=== PATIENT | female | born 1975 | race African-American/Black ===

== ENCOUNTER 2016-06-16 21:55 | Observation (INO) | payer OTHER ==
[~2016-06-16] VITALS: Ht 154.9 cm; Wt 51.7 kg
[2016-06-16] MEDS ORDERED: KETOROLAC 30 MG/ML VIAL (J1885) As Ordered ONE (22:45)
[2016-06-16] MEDS ORDERED: ONDANSETRON 4MG/2ML VIAL (J2405) As Ordered ONE (22:45)
[2016-06-16 22:50] LABS: CONTROL LINE UCG INT CTR LINE PRESENT
[2016-06-16 23:58] LABS: BASO % 0.3 % (0.0-1.0); EOS # 0.1 K/mm3 (0.0-0.50); LARGE UNSTAINED CELL # 0.6 K/mm3 (0.0-0.4); LARGE UNSTAINED CELL % 5.1 % (0.0-4.0); LYMPH # 1.9 K/mm3 (1.5-4.5); LYMPH % 12.1 % (24.0-44.0); MEAN CORPUSCULAR HEMOGLOBIN 32.9 pg (27.0-33.0); MEAN CORPUSCULAR HGB CONC 33.5 g/dl (32.0-36.5); MEAN CORPUSCULAR VOLUME 98.2 fl (80.0-96.0); MONO # 1.4 K/mm3 (0.0-0.8); MONO % 12.4 % (0.0-5.0); NEUTROPHILS # 7.6 K/mm3 (1.8-7.7); NEUTROPHILS % 69.1 % (36.0-66.0); PLATELET COUNT, AUTOMATED 347 k/mm3 (150-450); RED CELL DISTRIBUTION WIDTH 13.8 % (11.5-14.5)
[2016-06-17] MEDS ORDERED: CIPROFLOXACIN/D5W 400 MG/200 ML BAG (J0744) As Ordered ONE (00:12)
[2016-06-17 00:38] LABS: ALBUMIN 2.5 GM/DL (3.2-5.2); ALBUMIN/GLOBULIN RATIO 0.63 (1.00-1.93); ALKALINE PHOSPHATASE 83 U/L (45-117); ALT/SGPT 37 U/L (12-78); AST/SGOT 26 U/L (15-37); BILIRUBIN,DIRECT 0.5 MG/DL (0.0-0.2); BILIRUBIN,TOTAL 1.3 MG/DL (0.2-1.0); CREATININE FOR GFR 0.62 MG/DL (0.55-1.02); GLOMERULAR FILTRATION RATE > 60.0 (>58); TOTAL PROTEIN 6.5 GM/DL (6.4-8.2)
[2016-06-17 00:40] LABS: BLOOD UREA NITROGEN 3 MG/DL (7-18); GLUCOSE, FASTING 123 MG/DL (70-105); SODIUM LEVEL 141 MEQ/L (136-145)
[2016-06-17 00:41] LABS: ANION GAP 9 MEQ/L (8-16); CARBON DIOXIDE LEVEL 22 MEQ/L (21-32); CHLORIDE LEVEL 110 MEQ/L (98-107)
[2016-06-17] MEDS ORDERED: ACETAMINOPHEN 325 MG TAB As Ordered ONE (00:44)
[2016-06-17 00:49] LABS: POTASSIUM SERUM 2.9 MEQ/L (3.5-5.1)
[2016-06-17] MEDS ORDERED: AMBI10TA PO (01:00)
[2016-06-17] MEDS: NS 1,000 ML IV SCH ×3 (01:00→23:52)
[2016-06-17] MEDS ORDERED: PHEN200T14 PO (01:00)
[2016-06-17] MEDS ORDERED: TYLE500T78 PO (01:00)
[2016-06-17] MEDS ORDERED: CEFT500T3 PO (01:00)
[2016-06-17] MEDS ORDERED: PERCOCET 5MG/325MG TAB PO PRN (01:00)
[2016-06-17] MEDS ORDERED: ONDANSETRON 4MG/2ML VIAL (J2405) IV PRN (01:00)
[2016-06-17] MEDS ORDERED: IBUPROFEN 600 MG TAB PO PRN (01:00)
[2016-06-17] MEDS ORDERED: POTASSIUM CHLORIDE 10 MEQ SR TABLET As Ordered ONE ×2 (01:10→04:10)
[2016-06-17 01:12] LABS: MAGNESIUM LEVEL 1.8 MG/DL (1.8-2.4)
[2016-06-17] MEDS ORDERED: zolPIDEM TARTRATE 10MG TAB PO PRN (01:15)
--- NOTE | 2016-06-17 01:56 | HPEPDOC ---
Medical History and Physical Date of Admission Jun 17, 2016 at 00:42 History and Physical PRIMARY CARE PROVIDER: Sandrine Gross in [facility] CHIEF COMPLAINT: Back pain HISTORY OF PRESENT ILLNESS: Patient is a 41-year-old female who presented to emergency department today with chief complaint of back pain. Patient was recently seen and treated in [place] for back pain. Patient was diagnosed with a urinary tract infection and treated with a course of Ceftin and phenazopyridine. Urine culture grew ESBL Escherichia coli. She is up in [facility] visiting her sister at [place]. She presents to emergency department this evening due to pain in her back getting worse. Patient complaining of low back pain which was initially just present on her left side but is now also getting pain on the right side of her back. She currently rates her pain as 0/10 but at its worst her pain was 10/ 10. She describes pain as really uncomfortable, inability to get comfortable and she says that it hurts to breathe. She is having chills and fevers but denies sweats. She denies dysuria, hematuria. ALLERGIES: None PAST MEDICAL HISTORY: None PAST SURGICAL HISTORY: None SOCIAL HISTORY: Patient denies any tobacco product use. She drinks alcohol 1-2 times per month. She smokes marijuana 3-4 times per week. She lives in [place] with her 2 daughters. CODE STATUS: Full code REVIEW OF SYSTEMS: Constitutional: Positive for fever and chills, denies sweats HEENT: Head: Positive for dizziness and lightheadedness, denies headache. Eyes: denies blurry vision, double vision. Ears: denies hearing loss, tinnitus, ear pain. Nose: denies sinus pain, pressure, rhinorrhea, postnasal drip. Throat: denies sore throat, cough, difficulty swallowing Cardiovascular: denies chest discomfort/pain, palpitations Respiratory: denies shortness of breath, difficulty breathing Gastrointestinal: Positive for stomach pain, vomiting with brown vomitus. She denies diarrhea, constipation, hematochezia : denies dysuria, hematuria Musculoskeletal: Positive for the back pain which is worse with deep breathing Neurological: denies numbness, tingling, paresthesias Lymphatics: denies palpable lymph nodes or swollen glands Integumentary: denies any cuts, rashes, bruises Endocrine: Positive for polyuria, polydipsia PHYSICAL EXAMINATION: Vitals: Temperature 100.7, pulse 86, respiratory rate 18, blood pressure 127/86 , pulse ox 97% on room air General: Patient awake in stretcher, alert and oriented, verbal and able to answer questions appropriately. She does not appear to be in any acute distress HEENT: Head: normocephalic, atraumatic. Eyes: pupils equally reactive to light , conjunctiva are pink, sclera are nonicteric. Throat: buccal mucosa is pink and moist with no lesions in the oropharynx Respiratory: clear to auscultation bilaterally with no wheezes, rales, or rhonchi. Cardiovascular: regular rate and rhythm, with no murmurs, rubs or gallops. Abdomen: Right upper quadrant tenderness to palpation, soft, no masses to palpation Back: Left sided CVA tenderness to palpation Extremities: 5/5 strength in upper and lower extremities bilaterally, no swelling in either lower extremity bilaterally Neurological: sensation intact and symmetrical in upper and lower extremities bilaterally Lymphatics: no palpable lymph nodes, swollen glands Integumentary: skin free from rashes, lesions, abrasions Vascular: Radial pulses palpable and symmetrical LABORATORY DATA: CBC: White blood cells 11.0, H&H 9.9/29.5, platelets 347 Chemistry: Sodium 141, potassium 2.9, chloride 110, carbon dioxide 22, BUN 3, creatinine 0.62, glucose 123, calcium 8.0, magnesium 1.8 Lactic acid 1.0 Liver profile: AST 26, ALT 37, alkaline phosphatase 83, total protein 6.5, albumin 2.5, total bilirubin 1.3, direct bilirubin 0.5 UA: Color ninoska, appearance clear, pH 6.0, specific gravity 1.013, 1+ protein, 1 + ketones, 1+ blood, positive nitrites, 4.0 urobilinogen, 5 white blood cells, 18 red blood cells. Negative for all of the following: Glucose, bilirubin, leukocyte esterase, bacteria MICROBOIOLOGY: Blood cultures 2 pending ASSESSMENT: Patient is a 41-year-old female with ESBL Escherichia coli. She will be admitted for IV antibiotics, pain management and further observation. PLAN: #1: ESBL Escherichia coli: Admit patient to [facility] under care of Dr. Rivera. Orders placed for a Tylenol 650 mg by mouth every 4 hours when necessary for pain or fever, ibuprofen 600 mg by mouth every 6 hours when necessary for pain or fever, Levaquin 750 mg IV every 24 hours, Zofran 4 mg IV every 6 hours when necessary for nausea or vomiting, oxycodone with acetaminophen one tablet by mouth every 4 hours when necessary for pain, normal saline at rate of 90 mL/hr #2: Hypokalemia: Patient's potassium of 2.9, order placed for 40 meqs oral potassium every hour 2 doses. We will recheck potassium in the morning #3: Insomnia: Order placed for home dose of Ambien 10 mg by mouth daily at bedtime when necessary #4: DVT prophylaxis: Order placed for Lovenox 40 mg subcutaneously daily My preceptor for this patient encounter was physically present in the building during the encounter and was fully available. As needed, all aspects of the patient interview, examination, medical decision making process, and medical care plan development were reviewed and approved by the preceptor. Preceptor is aware and concurs with the plan as stated in the body of this note and will attest to such by his/her cosignature. Attending Note: I have independently examined this patient and all aspects of the exam and treatment decisions have been discussed with the resident. A member of the hospitalist staff will continue to follow this patient through discharge. Vital Signs Temperature 100.7, pulse 86, respiratory rate 18, blood pressure 127/86, pulse ox 97% on room air Home Medications Scheduled Cefuroxime Axetil (Ceftin) 500 Mg Tab 500 MG PO Q12H Scheduled PRN Acetaminophen (Tylenol Extra Strength) 500 Mg Tab 1,000 MG PO Q4H PRN PRN PAIN Phenazopyridine HCl (Phenazopyridine HCl) 200 Mg Tab 200 MG PO BID PRN PRN DISCOMFORT Zolpidem Tartrate (Ambien) 10 Mg Tab 10 MG PO QHS PRN PRN SLEEP Allergies Coded Allergies: No Known Allergies (Unverified , 06/17/16) JEROME DEXTER DO Jun 17, 2016 01:56 ARTUR COBOS DO Jun 17, 2016 23:07
[2016-06-17] MEDS: POTASSIUM CHLORIDE 10 MEQ SR TABLET PO SCH ×2 (02:30→03:30)
[2016-06-17] MEDS: LevoFLOXacin IV 750 MG in APPROPRIATE DILUENT 1 EA IV SCH (03:05)
[2016-06-17] MEDS ORDERED: LevoFLOXacin/DEXTROSE 750 MG/150 ML BAG (J1956) As Ordered ONE (03:07)
[2016-06-17 03:20] LABS: ANION GAP 10 MEQ/L (8-16); BLOOD UREA NITROGEN 3 MG/DL (7-18); CALCIUM LEVEL 7.6 MG/DL (8.5-10.1); CARBON DIOXIDE LEVEL 23 MEQ/L (21-32); CHLORIDE LEVEL 111 MEQ/L (98-107); CREATININE FOR GFR 0.68 MG/DL (0.55-1.02); GLOMERULAR FILTRATION RATE > 60.0 (>58); GLUCOSE, FASTING 164 MG/DL (70-105); POTASSIUM SERUM 3.1 MEQ/L (3.5-5.1); SODIUM LEVEL 144 MEQ/L (136-145)
[2016-06-17] MEDS ORDERED: PERCOCET 5MG/325MG TAB As Ordered ONE (04:18)
[2016-06-17 06:52] LABS: MEAN CORPUSCULAR HEMOGLOBIN 33.3 pg (27.0-33.0); MEAN CORPUSCULAR HGB CONC 33.7 g/dl (32.0-36.5); MEAN CORPUSCULAR VOLUME 98.9 fl (80.0-96.0); RED CELL DISTRIBUTION WIDTH 13.7 % (11.5-14.5); WHITE BLOOD COUNT 10.5 K/mm3 (4.0-10.0)
[2016-06-17 06:53] LABS: ANION GAP 9 MEQ/L (8-16); BLOOD UREA NITROGEN 2 MG/DL (7-18); CALCIUM LEVEL 7.9 MG/DL (8.5-10.1); CARBON DIOXIDE LEVEL 23 MEQ/L (21-32); CHLORIDE LEVEL 110 MEQ/L (98-107); CREATININE FOR GFR 0.68 MG/DL (0.55-1.02); GLOMERULAR FILTRATION RATE > 60.0 (>58); GLUCOSE, FASTING 116 MG/DL (70-105); POTASSIUM SERUM 3.7 MEQ/L (3.5-5.1); SODIUM LEVEL 142 MEQ/L (136-145)
[2016-06-17 08:00] VITALS: BP 116/82
[2016-06-17] MEDS ORDERED: MORPHINE 2 MG/ML 1ML SYRINGE IV PRN (08:15)
[2016-06-17 08:22] LABS: MAGNESIUM LEVEL 1.9 MG/DL (1.8-2.4)
[2016-06-17] MEDS ORDERED: ENOXAPARIN 40 MG/0.4 ML SYRINGE (J1650) As Ordered ONE (08:33)
[2016-06-17] MEDS ORDERED: MORPHINE 2 MG/ML 1ML SYRINGE As Ordered ONE (08:33)
[2016-06-17] MEDS: ENOXAPARIN 40 MG/0.4 ML SYRINGE (J1650) SC SCH (08:48)
[2016-06-17] MEDS ORDERED: ACETAMINOPHEN TAB 650MG DOSE (2X325MG) As Ordered ONE (12:17)
[2016-06-17] MEDS: ACETAMINOPHEN TAB 650MG DOSE (2X325MG) PO PRN ×2 (12:18→20:29)
[2016-06-17 13:30] VITALS: BP 127/87
[2016-06-17] MEDS: SENOKOT S TAB PO SCH ×2 (13:30→20:15)
--- NOTE | 2016-06-17 13:42 | EDDOCDS ---
Physician Documentation [facility] Name: Mary Martinez Age: 41 yrs Sex: Female : 1975 Arrival Date: 06/16/2016 Time: 21:55 Bed Admit Hold Private MD: Other - Complete Info On Cds Disposition: 06/17/16 00:12 Hospitalization ordered by Dewey Bright for Inpatient Admission. Preliminary diagnosis are Bacteremia - e.coli (esbl), Urinary tract infection, site not specified, Sepsis due to Escherichia coli [E. coli]. - Bed requested for M PED. - Status is Inpatient Admission. bcj - Condition is Stable. - Problem is new. - Symptoms are unchanged. Historical: - Allergies: no known allergies; - Home Meds: 1. Azo-Standard Oral 2. antibiotic - PMHx: none; - PSHx: none; - Social history: Smoking status: Patient states was never smoker of tobacco. No barriers to communication noted, The patient speaks fluent [place]ralt[place]. - Family history: Not pertinent. - : The pt / caregiver states he / she is not on anticoagulants. Home medication list is obtained from the patient. - Exposure Risk Screening:: None identified. DUCT MAKER: 06/16 22:02 LMP N/A - control method mcp Vital Signs: 21:57 BP 161 / 88; Pulse 102; Resp 20 S; Temp 99.3(O); Pulse Ox 100% on R/A; Weight 51.71 kg gr2 / 114 lbs (R); Height 5 ft. 1 in. (154.94 cm) (R); Pain 10/10; 06/17 00:17 BP 127 / 86; Pulse 86; Resp 18; Temp 100.7(O); Pulse Ox 97% on R/A; Pain 0/10; kb5 02:15 BP 128 / 82; Pulse 74; Resp 16; Temp 98.8(O); Pulse Ox 97% on R/A; Pain 3/10; ld5 04:30 BP 127 / 85; Pulse 95; Resp 16; Temp 99.5; Pulse Ox 98% ; Pain 5/10; ko2 06/16 21:57 Body Mass Index 21.54 (51.71 kg, 154.94 cm) gr2 MDM: 06/16 22:37 IV Saline Lock ordered. ar2 22:37 NS 0.9% 1000 ml IV at bolus once ordered. ar2 22:37 -Blood Culture (Adults Only), peripheral from different site, or from device/port/PICC ar2 etc. if present ordered. 22:37 Ondansetron 4 mg IVP once ordered. ar2 22:37 Misc Double End Tenon Operator Order ordered. ar2 22:37 ketorolac 30 mg IVP once; administer if NEG UCG ordered. ar2 22:38 CBC with Diff Ordered. EDMS 22:38 MED Profile Ordered. EDMS 22:38 UA Ordered. EDMS 22:38 -Blood Culture Ordered. EDMS 22:44 UCG- In Lab Ordered. EDMS 22:54 Misc Double End Tenon Operator Order complete. kb5 23:06 -Blood Culture (Adults Only), peripheral from different site, or from device/port/PICC kb5 etc. if present complete. 23:08 BLOOD CULTURES Ordered. EDMS 23:22 UCG- In Lab Reviewed. ar2 23:34 Lactic Acid (Kim tube on ice) Ordered. EDMS 23:50 Financial registration complete. zo 23:51 [facility] Payment Agreement was scanned into [employer] and attached to record. zo 06/17 00:00 Ciprofloxacin 400 mg IVPB at 200 mL/hr once over 60 mins ordered. ar2 00:00 NS 0.9% (Sepsis- hypotension or lactate >4mmol/L, 30ml/kg) 500 ml IV at bolus once; ar2 Give in 500mL aliquots, assess for rales after each, inform provider ordered. 00:01 CBC with Diff Reviewed. ar2 00:01 UA Reviewed. ar2 00:01 BED REQUEST+ADM ordered. EDMS 00:27 LIVER PROFILE Ordered. EDMS 00:30 Acetaminophen Tablet 650 mg PO once ordered. ar2 00:30 Lactic Acid (Kim tube on ice) Reviewed. ar2 00:43 Admission / Observation Status ordered. EDMS 00:57 MED Profile Reviewed. ar2 00:57 LIVER PROFILE Reviewed. ar2 00:58 Potassium Chloride Extended Release Tablet 40 mEq PO once ordered. ar2 01:05 REGULAR DIET ordered. EDMS 01:05 COMPLETE BLOOD COUNT Ordered. EDMS 01:05 BASIC METABOLIC PROFILE Ordered. EDMS 01:08 MAGNESIUM LEVEL Ordered. EDMS 01:48 MED Profile Reviewed. ar2 01:48 LIVER PROFILE Reviewed. ar2 01:48 MAGNESIUM LEVEL Reviewed. ar2 01:55 NS 0.9% 1000 ml IV at 90 mL/hr continuous ordered. ld5 02:42 Written Provider Order was scanned into [employer] and attached to record. ml3 02:43 BASIC METABOLIC PROFILE Ordered. EDMS 04:06 Written Provider Order was scanned into [employer] and attached to record. ml3 07:15 URINE CULTURE Ordered. EDMS Administered Medications: 06/16 23:20 Drug: NS 0.9% 1000 ml [sodium chloride 0.9 % intravenous solution] Route: IV; Rate: ld5 bolus; Site: right antecubital; 06/17 00:37 Follow up: IV Status: Completed infusion; IV Intake: 1000ml ld5 06/16 23:20 Drug: Ondansetron 4 mg [ondansetron HCl 2 mg/mL intravenous solution (2 mL)] Route: ld5 IVP; Site: right antecubital; 23:20 Drug: ketorolac 30 mg [ketorolac 30 mg/mL (1 mL) injection solution (1 mL)] Route: IVP; ld5 Site: right antecubital; 06/17 00:00 Follow up: Response: Pain is decreased ld5 00:18 Drug: Ciprofloxacin 400 mg [ciprofloxacin 400 mg/200 mL in 5 % dextrose intravenous ld5 piggyback] Route: IVPB; Rate: 200 mL/hr; Infused Over: 60 mins; Site: right forearm; 01:36 Follow up: IV Status: Completed infusion; IV Intake: 200ml ld5 00:37 Drug: NS 0.9% (Sepsis- hypotension or lactate >4mmol/L, 30ml/kg) 500 ml [sodium ld5 chloride 0.9 % intravenous solution] Route: IV; Rate: bolus; Site: right forearm; 00:47 Drug: Acetaminophen 650 mg [acetaminophen 325 mg tablet (2 tabs)] Route: PO; rw1 02:16 Follow up: Response: Temperature is decreased ld5 01:54 Drug: Potassium Chloride 40 mEq [potassium chloride ER 10 mEq tablet,extended release ld5 (4 tabs)] Route: PO; 02:05 Drug: NS 0.9% 1000 ml [sodium chloride 0.9 % intravenous solution] Route: IV; Rate: 90 ld5 mL/hr; Site: right forearm; Signatures: Dispatcher [employer] EDMS Lukas Miller RN RN Ruby Bernabe, RN RN orlin Valerie RubySmileyJordyn, [employer] ml3 Maritza Hay Kristopher, CHIEF MERCHANDISING OFFICER CHIEF MERCHANDISING OFFICER kb5 Dewey Cottrell, [employer] PA-C ar2 Mira Perez, CHIEF MERCHANDISING OFFICER CHIEF MERCHANDISING OFFICER ar3 Gretchen Augustin,RN RN ld5 Chu Fontana LPN rw1 The chart was reviewed and I authenticate all verbal orders and agree with the evaluation and treatment provided.Corrections: (The following items were deleted from the chart) 06/16 22:43 22:37 UCG by Nursing ordered. ar2 [facility] 06/17 00:27 00:24 LIVER PROFILE+LAB ordered. EDMS EDMS 01:08 01:05 MAGNESIUM LEVEL ordered. EDMS EDMS 08:15 08:10 MAGNESIUM LEVEL ordered. EDMS EDMS Attachments: 06/16 23:51 [facility] Payment Agreement zo 06/17 02:42 Written Provider Order ml3 04:06 Written Provider Order ml3 MTDD
--- NOTE | 2016-06-17 13:42 | EDDOCDS ---
Nurse's Notes [facility] Name: Mary Martinez Age: 41 yrs Sex: Female : 1975 Arrival Date: 06/16/2016 Time: 21:55 Bed Admit Hold Private MD: Other - Complete Info On Cds Diagnosis: Bacteremia-e.coli (esbl);Urinary tract infection, site not specified;Sepsis due to Escherichia coli [E. coli] Presentation: 06/16 21:59 Presenting complaint: Patient states: Left sided back pain since Sunday--increased mcp today, vomiting. Acute neurological deficits are not present. Mechanism of Injury: No Mechanism of Injury. Adult Sepsis Screening: The patient does not have new or worsening altered mentation. Patient's respiratory rate is less than 22. Systolic blood pressure is greater than 100. Patient has a qSOFA score of 0- Negative Sepsis Screen. Suicide/Homicide risk assessment- the patient denies having any suicidal and/or homicidal ideations and does not present with any other emotional, behavioral or mental health complaints. Status: Patient is not a director of maternity services or dependent. Transition of care: patient was not received from another setting of care. 21:59 Acuity: SAJAN Level 3 [facility] 21:59 Method Of Arrival: Walkin/Carried/Asstd [facility] Triage Assessment: 22:02 General: Appears ill, uncomfortable, Behavior is cooperative. Pain: Location: left mcp flank. HIV screening NA for this visit Offered previously. Neurological: No deficits noted. Respiratory: Airway is patent Respiratory effort is even, unlabored. GI: Pt is actively vomiting bile, Reports nausea, vomiting, left flank pain. Derm: Skin is normal. Musculoskeletal: Circulation, motion, and sensation intact. 22:02 Pain: Pain currently is 10 out of 10 on a pain scale. mcp CURRICULUM AND INSTRUCTION SPECIALIST: 22:02 LMP N/A - control method [facility] Historical: - Allergies: no known allergies; - Home Meds: 1. Azo-Standard Oral 2. antibiotic - PMHx: none; - PSHx: none; - Social history: Smoking status: Patient states was never smoker of tobacco. No barriers to communication noted, The patient speaks fluent Bulgarian. - Family history: Not pertinent. - : The pt / caregiver states he / she is not on anticoagulants. Home medication list is obtained from the patient. - Exposure Risk Screening:: None identified. Screenin:21 Screening information is obtained from the patient. Fall risk: No risks identified. ld5 Assistance ADL's: requires no assistance with activities of daily living. Abuse/DV Screen: The patient / caregiver reports he/she is: not in a situation that causes fear, pain or injury. Nutritional screening: No deficits noted. Advance Directives: There is no active DNR order. home support is adequate. 06/17 00:52 Notification of positive screening findings is made to Dr Lor AUGUSTE, K of 2.9. ld5 Assessment: 06/16 23:21 General: Appears uncomfortable. Pain: Location: left flank Pain currently is 10 out of ld5 10 on a pain scale. Neurological: Level of Consciousness is awake, alert. Respiratory: Airway is patent Respiratory effort is even, unlabored. GI: Abdomen is non- distended Bowel sounds present X 4 quads. Reports nausea. Derm: Skin is intact, Skin is dry. 06/17 00:13 General: Appears in no apparent distress. Neurological: Level of Consciousness is ld5 awake, obeys commands. Respiratory: Airway is patent Respiratory effort is even, unlabored. 01:00 General: Pt ambulated to bathroom. Tolerated well. Friend remains at bedside. Pt aware ld5 of plan for admission. Will continue to monitor. 01:37 General: In to medicate pt. Pt swallowed first tablet, reported it felt like it was ld5 stuck and was making her nauseous, and then vomited. Pt denies nausea prior to med intake. This RN explained we would wait a little while to try again. 02:00 General: Pt was able to tolerate potassium tablets with applesauce. No further nausea ld5 at this time. Denies any needs. Will continue to monitor. 02:15 General: Pt and sister made aware of plan to stay in ER pending floor bed. Fluids ld5 infusing per admission orders. Pt resting quietly in bed. Will continue to monitor. 02:30 General: Report given to Dominga Lewis RN. ld5 02:35 General: Appears in no apparent distress, Behavior is appropriate for age, cooperative. ko2 Pain: Location: left flank Pain currently is 3 out of 10 on a pain scale. Neurological: Level of Consciousness is awake, alert, obeys commands. Cardiovascular: Heart tones S1 S2 present. Respiratory: Airway is patent Respiratory effort is even, unlabored, Respiratory pattern is regular, symmetrical, Breath sounds are clear bilaterally. Derm: Skin is normal. 02:38 General: Dr. Bright called and asked about the two doses of potassium to be given at ko2 0230 and 0330 as pt had 40 meq given at 0157. New order for BMP now obtained. 03:54 General: Appears in no apparent distress, Behavior is appropriate for age, cooperative. ko2 Neurological: Level of Consciousness is awake, alert, obeys commands. Respiratory: Airway is patent Respiratory effort is even, unlabored. Derm: Skin is normal. 05:00 General: pt currently resting on stretcher, appears to be sleeping. No concern at this ko2 time. . 06:15 General: Appears in no apparent distress, Behavior is appropriate for age, cooperative. ko2 Pain: Location: head Pain currently is 3 out of 10 on a pain scale. Neurological: Level of Consciousness is awake, alert. Respiratory: Airway is patent Respiratory effort is even, unlabored, Respiratory pattern is regular, symmetrical. Derm: Skin is normal. 13:38 General: Appears in no apparent distress, comfortable, Behavior is cooperative. [facility] Vital Signs: 06/16 21:57 BP 161 / 88; Pulse 102; Resp 20 S; Temp 99.3(O); Pulse Ox 100% on R/A; Weight 51.71 kg gr2 (R); Height 5 ft. 1 in. (154.94 cm) (R); Pain 10/10; 06/17 00:17 BP 127 / 86; Pulse 86; Resp 18; Temp 100.7(O); Pulse Ox 97% on R/A; Pain 0/10; kb5 02:15 BP 128 / 82; Pulse 74; Resp 16; Temp 98.8(O); Pulse Ox 97% on R/A; Pain 3/10; ld5 04:30 BP 127 / 85; Pulse 95; Resp 16; Temp 99.5; Pulse Ox 98% ; Pain 5/10; ko2 06/16 21:57 Body Mass Index 21.54 (51.71 kg, 154.94 cm) gr2 Vitals: 06/16 21:57 Log In Time: June 16, 2016 at 21:57. gr2 ED Course: 21:56 Patient visited by Bhavik Underwood. gr2 21:56 Other - Complete Info On Cds is Private Physician. gr2 21:56 Patient moved to Waiting gr2 21:58 Patient visited by Bhavik Underwood. gr2 21:58 Patient moved to Pre RCE gr2 22:01 Triage Initiated mcp 22:03 Patient visited by Ruby Burkett, BENEDICTO. mcp 22:03 Patient moved to Triage 2 mcp 22:24 Dewey Cottrell PA-C is PHCP. ar2 22:24 Ankush Garrido DO is Attending Physician. ar2 22:24 Patient visited by Dewey Cottrell PA-C. ar2 22:31 Patient moved to I1 / M1 ttb 22:32 Patient moved to I4 / M4 kb5 22:41 UA Sent. cln 22:44 UCG- In Lab Sent. ld5 23:07 Patient visited by Darryl Birmingham PCA. kb5 23:21 The patient / caregiver is instructed regarding the plan of care and ED course. ld5 Accompanied by Friend, Patient has correct armband on for positive identification. Placed in gown. Bed in low position. Call light in reach. 23:21 Inserted saline lock: 20 gauge in right forearm by Carlo Burkett RN. ld5 23:22 Patient visited by Gretchen Augustin,BENEDICTO. ld5 23:51 [facility] Payment Agreement was scanned into [employer] and attached to record. zo 18 00:10 Dewey Bright DO is Hospitalizing Provider. ar2 00:35 LIVER PROFILE Sent. ld5 00:53 Patient visited by Gretchen Augustin,BENEDICTO. ld5 01:38 Patient visited by Gretchen Augustin,BENEDICTO. ld5 02:16 Patient visited by Gretchen Augustin,BENEDICTO. ld5 02:22 Birgit Lewis,BENEDICTO is Primary Nurse. kb5 02:22 Patient moved to 9 kb5 02:30 Patient visited by Gretchen Augustin,BENEDICTO. ld5 02:35 Patient moved to Admit Hold ml3 02:42 Written Provider Order was scanned into [employer] and attached to record. ml3 04:06 Written Provider Order was scanned into [employer] and attached to record. ml3 07:30 Patient moved to I8 / 16 js13 07:34 Patient moved to Admit Hold kpj 07:58 Primary Nurse role handed off by Birgit Lewis RN btw 13:38 No apparent distress. Resting quietly. Awaiting disposition. bcj 13:38 No procedures done that require assistance. [facility] 13:41 Patient visited by Lukas Miller RN. [facility] Administered Medications: 06/16 23:20 Drug: NS 0.9% 1000 ml [sodium chloride 0.9 % intravenous solution] Route: IV; Rate: ld5 bolus; Site: right antecubital; 06/17 00:37 Follow up: IV Status: Completed infusion; IV Intake: 1000ml ld5 06/16 23:20 Drug: Ondansetron 4 mg [ondansetron HCl 2 mg/mL intravenous solution (2 mL)] Route: ld5 IVP; Site: right antecubital; 23:20 Drug: ketorolac 30 mg [ketorolac 30 mg/mL (1 mL) injection solution (1 mL)] Route: IVP; ld5 Site: right antecubital; 06/17 00:00 Follow up: Response: Pain is decreased ld5 00:18 Drug: Ciprofloxacin 400 mg [ciprofloxacin 400 mg/200 mL in 5 % dextrose intravenous ld5 piggyback] Route: IVPB; Rate: 200 mL/hr; Infused Over: 60 mins; Site: right forearm; 01:36 Follow up: IV Status: Completed infusion; IV Intake: 200ml ld5 00:37 Drug: NS 0.9% (Sepsis- hypotension or lactate >4mmol/L, 30ml/kg) 500 ml [sodium ld5 chloride 0.9 % intravenous solution] Route: IV; Rate: bolus; Site: right forearm; 00:47 Drug: Acetaminophen 650 mg [acetaminophen 325 mg tablet (2 tabs)] Route: PO; rw1 02:16 Follow up: Response: Temperature is decreased ld5 01:54 Drug: Potassium Chloride 40 mEq [potassium chloride ER 10 mEq tablet,extended release ld5 (4 tabs)] Route: PO; 02:05 Drug: NS 0.9% 1000 ml [sodium chloride 0.9 % intravenous solution] Route: IV; Rate: 90 ld5 mL/hr; Site: right forearm; Intake: 00:37 IV: 1000.00ml; Total: 1000.00ml. ld5 01:36 IV: 200.00ml; Total: 1200.00ml. ld5 Order Results: Lab Order: CBC with Diff; SPEC'M 06/16/16 23:40 Test: WHITE BLOOD COUNT; Value: 11.0; Range: 4.0-10.0; Abnormal: Above high normal; Units: K/mm3; Status: F Test: RED BLOOD COUNT; Value: 3.00; Range: 4.00-5.40; Abnormal: Below low normal; Units: M/mm3; Status: F Test: HEMOGLOBIN; Value: 9.9; Range: 12.0-16.0; Abnormal: Below low normal; Units: g/dl; Status: F Test: HEMATOCRIT; Value: 29.5; Range: 36.0-47.0; Abnormal: Below low normal; Units: %; Status: F Test: MEAN CORPUSCULAR VOLUME; Value: 98.2; Range: 80.0-96.0; Abnormal: Above high normal; Units: fl; Status: F Test: MEAN CORPUSCULAR HEMOGLOBIN; Value: 32.9; Range: 27.0-33.0; Units: pg; Status: F Test: MEAN CORPUSCULAR HGB CONC; Value: 33.5; Range: 32.0-36.5; Units: g/dl; Status: F Test: RED CELL DISTRIBUTION WIDTH; Value: 13.8; Range: 11.5-14.5; Units: %; Status: F Test: PLATELET COUNT, AUTOMATED; Value: 347; Range: 150-450; Units: k/mm3; Status: F Test: NEUTROPHILS %; Value: 69.1; Range: 36.0-66.0; Abnormal: Above high normal; Units: %; Status: F Test: LYMPH %; Value: 12.1; Range: 24.0-44.0; Abnormal: Below low normal; Units: %; Status: F Test: MONO %; Value: 12.4; Range: 0.0-5.0; Abnormal: Above high normal; Units: %; Status: F Test: EOS %; Value: 1.0; Range: 0.0-3.0; Units: %; Status: F Test: BASO %; Value: 0.3; Range: 0.0-1.0; Units: %; Status: F Test: LARGE UNSTAINED CELL %; Value: 5.1; Range: 0.0-4.0; Abnormal: Above high normal; Units: %; Status: F Test: NEUTROPHILS #; Value: 7.6; Range: 1.8-7.7; Units: K/mm3; Status: F Test: LYMPH #; Value: 1.9; Range: 1.5-4.5; Units: K/mm3; Status: F Test: MONO #; Value: 1.4; Range: 0.0-0.8; Abnormal: Above high normal; Units: K/mm3; Status: F Test: EOS #; Value: 0.1; Range: 0.0-0.50; Units: K/mm3; Status: F Test: BASO #; Value: 0.0; Range: 0.0-0.2; Units: K/mm3; Status: F Test: LARGE UNSTAINED CELL #; Value: 0.6; Range: 0.0-0.4; Abnormal: Above high normal; Units: K/mm3; Status: F Lab Order: MED Profile; [facility]' 06/16/16 23:40 Test: GLUCOSE, FASTING; Value: 123; Range: 70-105; Abnormal: Above high normal; Units: MG/DL; Status: F Test: BLOOD UREA NITROGEN; Value: 3; Range: 7-18; Abnormal: Below low normal; Units: MG/DL; Status: F Test: CREATININE FOR GFR; Value: 0.62; Range: 0.55-1.02; Units: MG/DL; Status: F Test: GLOMERULAR FILTRATION RATE; Value: > 60.0; Range: >58; Status: F Test: SODIUM LEVEL; Value: 141; Range: 136-145; Units: MEQ/L; Status: F Test: POTASSIUM SERUM; Value: 2.9; Range: 3.5-5.1; Abnormal: Critical Low; Units: MEQ/L; Status: F Test: CHLORIDE LEVEL; Value: 110; Range: 98-107; Abnormal: Above high normal; Units: MEQ/L; Status: F Test: CARBON DIOXIDE LEVEL; Value: 22; Range: 21-32; Units: MEQ/L; Status: F Test: ANION GAP; Value: 9; Range: 8-16; Units: MEQ/L; Status: F Test: CALCIUM LEVEL; Value: 8.0; Range: 8.5-10.1; Abnormal: Below low normal; Units: MG/DL; Status: F Test Note: ; Units are mL/min/1.73 m2 Chronic Kidney Disease Staging per NKF: Stage I & II GFR >=60 Normal to Mildly Decreased Stage III GFR 30-59 Moderately Decreased Stage IV GFR 15-29 Severely Decreased Stage V GFR <15 Very Little GFR Left ESRD GFR <15 on MACHINE WELDER Lab Order: UA; SPEC'M 06/16/16 22:22 Test: APPEARANCE, URINE; Value: CLEAR; Range: CLEAR; Status: F Test: COLOR, URINE; Value: ALEAH; Range: YELLOW; Status: F Test: PH,URINE; Value: 6.0; Range: 5.0-9.0; Units: UNITS; Status: F Test: SPECIFIC GRAVITY URINE AUTO; Value: 1.013; Range: 1.002-1.035; Status: F Test: PROTEIN, URINE AUTO; Value: 1+; Range: NEGATIVE; Abnormal: Above high normal; Units: mg/dL; Status: F Test: GLUCOSE, URINE (UA) AUTO; Value: NEGATIVE; Range: NEGATIVE; Units: mg/dL; Status: F Test: KETONE, URINE AUTO; Value: 1+; Range: NEGATIVE; Abnormal: Above high normal; Units: mg/dL; Status: F Test: UROBILINOGEN, URINE AUTO; Value: 4.0; Range: 0.0-2.0; Abnormal: Above high normal; Units: mg/dL; Status: F Test: BILIRUBIN, URINE AUTO; Value: NEGATIVE; Range: NEGATIVE; Status: F Test: NITRITE, URINE AUTO; Value: POSITIVE; Range: NEGATIVE; Status: F Test: LEUKOCYTE ESTERASE, URINE AUTO; Value: NEGATIVE; Range: NEGATIVE; Status: F Test: BLOOD, URINE BLOOD; Value: 1+; Range: NEGATIVE; Abnormal: Above high normal; Status: F Test: WBC, URINE AUTO; Value: 5; Range: 0-3; Abnormal: Above high normal; Units: /HPF; Status: F Test: RBC, URINE AUTO; Value: 18; Range: 0-3; Abnormal: Above high normal; Units: /HPF; Status: F Test: BACTERIA, URINE AUTO; Value: NEGATIVE; Range: NEGATIVE; Status: F Test: SQUAMOUS EPITHELIAL CELL UR AU; Value: 1; Range: 0-6; Units: /HPF; Status: F Test: MUCUS, URINE; Value: SMALL; Range: NEGATIVE; Status: F Test: HYALINE CAST, URINE AUTO; Value: 0; Range: 0-1; Units: /LPF; Status: F Lab Order: UCG- In Lab; [facility] 06/16/16 22:22 Test: URINE PREG TEST; Value: NEGATIVE; Range: NEGATIVE; Status: F Lab Order: Lactic Acid (Kim tube on ice); 06/16/16 23:40 Test: LACTIC ACID SEPSIS PROTOCOL; Value: 1.0; Range: 0.4-2.0; Units: MMOL/L; Status: F Lab Order: LIVER PROFILE; 06/16/16 23:40 Test: AST/SGOT; Value: 26; Range: 15-37; Units: U/L; Status: F Test: ALT/SGPT; Value: 37; Range: 12-78; Units: U/L; Status: F Test: ALKALINE PHOSPHATASE; Value: 83; Range: 45-117; Units: U/L; Status: F Test: BILIRUBIN,TOTAL; Value: 1.3; Range: 0.2-1.0; Abnormal: Above high normal; Units: MG/DL; Status: F Test: BILIRUBIN,DIRECT; Value: 0.5; Range: 0.0-0.2; Abnormal: Above high normal; Units: MG/DL; Status: F Test: TOTAL PROTEIN; Value: 6.5; Range: 6.4-8.2; Units: GM/DL; Status: F Test: ALBUMIN; Value: 2.5; Range: 3.2-5.2; Abnormal: Below low normal; Units: GM/DL; Status: F Test: ALBUMIN/GLOBULIN RATIO; Value: 0.63; Range: 1.00-1.93; Abnormal: Below low normal; Status: F Lab Order: COMPLETE BLOOD COUNT; 06/17/16 06:09 Test: WHITE BLOOD COUNT; Value: 10.5; Range: 4.0-10.0; Abnormal: Above high normal; Units: K/mm3; Status: F Test: RED BLOOD COUNT; Value: 3.04; Range: 4.00-5.40; Abnormal: Below low normal; Units: M/mm3; Status: F Test: HEMOGLOBIN; Value: 10.1; Range: 12.0-16.0; Abnormal: Below low normal; Units: g/dl; Status: F Test: HEMATOCRIT; Value: 30.1; Range: 36.0-47.0; Abnormal: Below low normal; Units: %; Status: F Test: MEAN CORPUSCULAR VOLUME; Value: 98.9; Range: 80.0-96.0; Abnormal: Above high normal; Units: fl; Status: F Test: MEAN CORPUSCULAR HEMOGLOBIN; Value: 33.3; Range: 27.0-33.0; Abnormal: Above high normal; Units: pg; Status: F Test: MEAN CORPUSCULAR HGB CONC; Value: 33.7; Range: 32.0-36.5; Units: g/dl; Status: F Test: RED CELL DISTRIBUTION WIDTH; Value: 13.7; Range: 11.5-14.5; Units: %; Status: F Test: PLATELET COUNT, AUTOMATED; Value: 365; Range: 150-450; Units: k/mm3; Status: F Lab Order: BASIC METABOLIC PROFILE; [facility] 06/17/16 06:09 Test: GLUCOSE, FASTING; Value: 116; Range: 70-105; Abnormal: Above high normal; Units: MG/DL; Status: F Test: BLOOD UREA NITROGEN; Value: 2; Range: 7-18; Abnormal: Below low normal; Units: MG/DL; Status: F Test: CREATININE FOR GFR; Value: 0.68; Range: 0.55-1.02; Units: MG/DL; Status: F Test: GLOMERULAR FILTRATION RATE; Value: > 60.0; Range: >58; Status: F Test: SODIUM LEVEL; Value: 142; Range: 136-145; Units: MEQ/L; Status: F Test: POTASSIUM SERUM; Value: 3.7; Range: 3.5-5.1; Units: MEQ/L; Status: F Test: CHLORIDE LEVEL; Value: 110; Range: 98-107; Abnormal: Above high normal; Units: MEQ/L; Status: F Test: CARBON DIOXIDE LEVEL; Value: 23; Range: 21-32; Units: MEQ/L; Status: F Test: ANION GAP; Value: 9; Range: 8-16; Units: MEQ/L; Status: F Test: CALCIUM LEVEL; Value: 7.9; Range: 8.5-10.1; Abnormal: Below low normal; Units: MG/DL; Status: F Test Note: ; Units are mL/min/1.73 m2 Chronic Kidney Disease Staging per NKF: Stage I & II GFR >=60 Normal to Mildly Decreased Stage III GFR 30-59 Moderately Decreased Stage IV GFR 15-29 Severely Decreased Stage V GFR <15 Very Little GFR Left ESRD GFR <15 on MACHINE WELDER Lab Order: MAGNESIUM LEVEL; SPEC06/16/16 23:40 Test: MAGNESIUM LEVEL; Value: 1.8; Range: 1.8-2.4; Units: MG/DL; Status: F Lab Order: BASIC METABOLIC PROFILE; SPEC06/17/16 02:54 Test: GLUCOSE, FASTING; Value: 164; Range: 70-105; Abnormal: Above high normal; Units: MG/DL; Status: F Test: BLOOD UREA NITROGEN; Value: 3; Range: 7-18; Abnormal: Below low normal; Units: MG/DL; Status: F Test: CREATININE FOR GFR; Value: 0.68; Range: 0.55-1.02; Units: MG/DL; Status: F Test: GLOMERULAR FILTRATION RATE; Value: > 60.0; Range: >58; Status: F Test: SODIUM LEVEL; Value: 144; Range: 136-145; Units: MEQ/L; Status: F Test: POTASSIUM SERUM; Value: 3.1; Range: 3.5-5.1; Abnormal: Below low normal; Units: MEQ/L; Status: F Test: CHLORIDE LEVEL; Value: 111; Range: 98-107; Abnormal: Above high normal; Units: MEQ/L; Status: F Test: CARBON DIOXIDE LEVEL; Value: 23; Range: 21-32; Units: MEQ/L; Status: F Test: ANION GAP; Value: 10; Range: 8-16; Units: MEQ/L; Status: F Test: CALCIUM LEVEL; Value: 7.6; Range: 8.5-10.1; Abnormal: Below low normal; Units: MG/DL; Status: F Test Note: ; Units are mL/min/1.73 m2 Chronic Kidney Disease Staging per NKF: Stage I & II GFR >=60 Normal to Mildly Decreased Stage III GFR 30-59 Moderately Decreased Stage IV GFR 15-29 Severely Decreased Stage V GFR <15 Very Little GFR Left ESRD GFR <15 on MACHINE WELDER Lab Order: MAGNESIUM LEVEL; SPEC'M 06/17/16 02:54 Test: MAGNESIUM LEVEL; Value: 1.9; Range: 1.8-2.4; Units: MG/DL; Status: F Outcome: 00:12 Decision to Hospitalize by Provider. ar2 13:38 Discharge Assessment: patient administered narcotics - no. The following High Risk [facility] Discharge criteria are identified: None. Discharged to Admitted to Med/Surg accompanied by tech, via stretcher. Condition: stable. No special radiology studies were completed. Property :Personal belongings accompany Pt. 13:41 Patient left the ED. [facility] Signatures: Tigist Foster, RN RN Lukas Duran RN Ruby Steele, RN RN Katelyn House, Prep Room Supervisor Unit ml3 Chu Fontana,ROLLWAY WORKER ROLLWAY WORKER rw1 Maritza Hay Kristopher, MOTORBOAT MECHANIC HELPER MOTORBOAT MECHANIC HELPER kb5 Dewey Cottrell, PA-C PA-C ar2 Edilberto Carter PA PA Gretchen DavisRN RN ld5 Cammie AlfaroRN RN js13 Carlee Zepeda RN RN Bhavik Marr gr2 Birgit Lewis,RN RN ko2 Ambar Echavarria, MOTORBOAT MECHANIC HELPER MOTORBOAT MECHANIC HELPER cln Corrections: (The following items were deleted from the chart) 02:05 06/16 23:21 Inserted saline lock: 20 gauge in right antecubital area by Carlo Burkett RN ld5 ld5 MTDD
[2016-06-17] MEDS ORDERED: zolPIDEM TARTRATE 5 MG TAB PO PRN (15:00)
[2016-06-17 16:25] VITALS: BP 147/93
[2016-06-17 20:58] VITALS: BP 148/94
[2016-06-17 23:52] VITALS: BP 132/89
[2016-06-18] MEDS: LevoFLOXacin IV 750 MG in APPROPRIATE DILUENT 1 EA IV SCH (03:25)
[2016-06-18 07:02] LABS: MEAN CORPUSCULAR HEMOGLOBIN 33.1 pg (27.0-33.0); MEAN CORPUSCULAR HGB CONC 33.7 g/dl (32.0-36.5); MEAN CORPUSCULAR VOLUME 98.1 fl (80.0-96.0); WHITE BLOOD COUNT 10.2 K/mm3 (4.0-10.0)
[2016-06-18] MEDS: SENOKOT S TAB PO SCH (08:12)
[2016-06-18 08:15] VITALS: BP 155/85
[2016-06-18] MEDS: ENOXAPARIN 40 MG/0.4 ML SYRINGE (J1650) SC SCH (08:15)
[2016-06-18 08:18] LABS: ANION GAP 9 MEQ/L (8-16); BLOOD UREA NITROGEN < 1 MG/DL (7-18); CALCIUM LEVEL 8.5 MG/DL (8.5-10.1); CARBON DIOXIDE LEVEL 25 MEQ/L (21-32); CHLORIDE LEVEL 108 MEQ/L (98-107); CREATININE FOR GFR 0.59 MG/DL (0.55-1.02); GLOMERULAR FILTRATION RATE > 60.0 (>58); GLUCOSE, FASTING 108 MG/DL (70-105); MAGNESIUM LEVEL 1.8 MG/DL (1.8-2.4); POTASSIUM SERUM 3.5 MEQ/L (3.5-5.1); SODIUM LEVEL 142 MEQ/L (136-145)
[2016-06-18] MEDS ORDERED: LEVA750T PO (08:23)
[2016-06-18] MEDS ORDERED: POTASSIUM CHLORIDE 10 MEQ SR TABLET PO ONE (09:00)
--- NOTE | 2016-06-19 08:11 | IPN ---
DATE: 06/17/2016 Patient reported left sided flank pain, admitted overnight. Febrile. Denies any chest pain, pressure, discomfort. Denies any shortness of breath. Vital signs: Temperature 100.5, pulse 96, respirations 18, blood pressure 116/82, pulse oximetry 99% on room air. LABORATORY: WBC 10.5, hemoglobin and hematocrit 10.1/30.1, platelets 365. Chemistry: Sodium 142, potassium 3.7, chloride 110, bicarbonate 23, BUN 2, creatinine 0.68. PHYSICAL EXAMINATION: General: Patient alert, oriented times three, in no acute distress. HEENT: Normocephalic, atraumatic. Pulmonary: Bilateral clear to auscultation. No wheezes, rales or rhonchi. Cardiac: Intermittent mildly tachycardia, regular rate and rhythm, normal S1, S2. Abdomen: Soft, minimal epigastric tenderness, no rebound, no guarding, positive bowel sounds. Extremities: No clubbing, cyanosis or edema. Back: Left sided flank pain. Costovertebral angle (CVA) tenderness. ASSESSMENT AND PLAN: This is a 41-year-old female patient with no significant past medical history visiting from [place], currently being treated for urinary tract infection (UTI) with Ceftin but culture is positive for ESBL. 1. Extended Spectrum Beta-Lactamases (ESBL) E. Coli. Patient with fever and tachycardia, sepsis. IV fluids. Levaquin IV. Zofran as needed. Pain medication as prescribed. Bowel regimen as prescribed. Monitor for clinical improvement. Will get an ultrasound to rule out pyelo. Followup cultures. 2. Hypokalemia secondary to nausea, marginal vomiting due to pyelo, supplement potassium as well as potassium magnesium. Continue to monitor. 3. Insomnia. Continue home medication. Deep venous thrombosis (DVT) prophylaxis. Lovenox subcutaneous. DISPOSITION PLANNING: Pending clinical improvement.
--- NOTE | 2016-06-19 08:28 | REP ---
RENAL ULTRASOUND COMPLETE: 06/17/2016. Clinical history: Rule out pyelonephritis. No prior studies. Findings: Please note this study is presented for my initial review on the date of this dictation, it appears that this study was unable to be transmitted by the PACS to the radiologist reading list over the weekend. I apologize for any unintended delay in this report due to factors beyond my control. The right kidney measures 10.6 x 6.2 x 4.8 cm. The left kidney measures 11.3 x 6.6 x 6.3 cm. Both kidneys show normal cortical thickness and echogenicity. Subtle heterogeneity with hyperechoic area and relative hypoechogenic areas upper pole on the right and interpolar/upper pole region on the left. This could reflect some areas of pyelonephritis. There is no solid or cystic mass identified. No stone, hydronephrosis or perinephric fluid. The bladder measured 8.6 x 6.4 x 5.4 cm with vigorous bilateral ureteral jets. Impression: 1. Renal size and cortical thickness normal without hydronephrosis, stone or mass. There is some heterogeneity in echotexture of the upper pole on the right and interpolar/upper pole region on the left that may reflect pyelonephritis. No perinephric fluid or other significant finding in the kidney. 2. Bladder adequately filled and with vigorous bilateral ureteral jets. No other finding. Signed by Rahat Munoz MD 06/19/2016 05:13 P
--- NOTE | 2016-06-19 14:42 | EDDOCDS ---
Nurse's Notes [facility] Name: Mary Martinez Age: 41 yrs Sex: Female : 1975 Arrival Date: 06/16/2016 Time: 21:55 Bed Admit Hold Private MD: Other - Complete Info On Cds Diagnosis: Bacteremia-e.coli (esbl);Urinary tract infection, site not specified;Sepsis due to Escherichia coli [E. coli] Presentation: 06/16 21:59 Presenting complaint: Patient states: Left sided back pain since Sunday--increased mcp today, vomiting. Acute neurological deficits are not present. Mechanism of Injury: No Mechanism of Injury. Adult Sepsis Screening: The patient does not have new or worsening altered mentation. Patient's respiratory rate is less than 22. Systolic blood pressure is greater than 100. Patient has a qSOFA score of 0- Negative Sepsis Screen. Suicide/Homicide risk assessment- the patient denies having any suicidal and/or homicidal ideations and does not present with any other emotional, behavioral or mental health complaints. Status: Patient is not a social and human services assistant or dependent. Transition of care: patient was not received from another setting of care. 21:59 Acuity: SAJAN Level 3 [facility] 21:59 Method Of Arrival: Walkin/Carried/Asstd [facility] Triage Assessment: 22:02 General: Appears ill, uncomfortable, Behavior is cooperative. Pain: Location: left mcp flank. HIV screening NA for this visit Offered previously. Neurological: No deficits noted. Respiratory: Airway is patent Respiratory effort is even, unlabored. GI: Pt is actively vomiting bile, Reports nausea, vomiting, left flank pain. Derm: Skin is normal. Musculoskeletal: Circulation, motion, and sensation intact. 22:02 Pain: Pain currently is 10 out of 10 on a pain scale. 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 Azo-Standard Oral 2. antibiotic - PMHx: none; - PSHx: none; - Social history: Smoking status: Patient states was never smoker of tobacco. No barriers to communication noted, The patient speaks fluent Japanese. - Family history: Not pertinent. - : The pt / caregiver states he / she is not on anticoagulants. Home medication list is obtained from the patient. - Exposure Risk Screening:: None identified. Screenin:21 Screening information is obtained from the patient. Fall risk: No risks identified. ld5 Assistance ADL's: requires no assistance with activities of daily living. Abuse/DV Screen: The patient / caregiver reports he/she is: not in a situation that causes fear, pain or injury. Nutritional screening: No deficits noted. Advance Directives: There is no active DNR order. home support is adequate. 06/17 00:52 Notification of positive screening findings is made to Dr Lor AUGUSTE, K of 2.9. ld5 Assessment: 06/16 23:21 General: Appears uncomfortable. Pain: Location: left flank Pain currently is 10 out of ld5 10 on a pain scale. Neurological: Level of Consciousness is awake, alert. Respiratory: Airway is patent Respiratory effort is even, unlabored. GI: Abdomen is non- distended Bowel sounds present X 4 quads. Reports nausea. Derm: Skin is intact, Skin is dry. 06/17 00:13 General: Appears in no apparent distress. Neurological: Level of Consciousness is ld5 awake, obeys commands. Respiratory: Airway is patent Respiratory effort is even, unlabored. 01:00 General: Pt ambulated to bathroom. Tolerated well. Friend remains at bedside. Pt aware ld5 of plan for admission. Will continue to monitor. 01:37 General: In to medicate pt. Pt swallowed first tablet, reported it felt like it was ld5 stuck and was making her nauseous, and then vomited. Pt denies nausea prior to med intake. This RN explained we would wait a little while to try again. 02:00 General: Pt was able to tolerate potassium tablets with applesauce. No further nausea ld5 at this time. Denies any needs. Will continue to monitor. 02:15 General: Pt and sister made aware of plan to stay in ER pending floor bed. Fluids ld5 infusing per admission orders. Pt resting quietly in bed. Will continue to monitor. 02:30 General: Report given to Dominga Lewis RN. ld5 02:35 General: Appears in no apparent distress, Behavior is appropriate for age, cooperative. ko2 Pain: Location: left flank Pain currently is 3 out of 10 on a pain scale. Neurological: Level of Consciousness is awake, alert, obeys commands. Cardiovascular: Heart tones S1 S2 present. Respiratory: Airway is patent Respiratory effort is even, unlabored, Respiratory pattern is regular, symmetrical, Breath sounds are clear bilaterally. Derm: Skin is normal. 02:38 General: Dr. Bright called and asked about the two doses of potassium to be given at ko2 0230 and 0330 as pt had 40 meq given at 0157. New order for BMP now obtained. 03:54 General: Appears in no apparent distress, Behavior is appropriate for age, cooperative. ko2 Neurological: Level of Consciousness is awake, alert, obeys commands. Respiratory: Airway is patent Respiratory effort is even, unlabored. Derm: Skin is normal. 05:00 General: pt currently resting on stretcher, appears to be sleeping. No concern at this ko2 time. . 06:15 General: Appears in no apparent distress, Behavior is appropriate for age, cooperative. ko2 Pain: Location: head Pain currently is 3 out of 10 on a pain scale. Neurological: Level of Consciousness is awake, alert. Respiratory: Airway is patent Respiratory effort is even, unlabored, Respiratory pattern is regular, symmetrical. Derm: Skin is normal. 13:38 General: Appears in no apparent distress, comfortable, Behavior is cooperative. [facility] Vital Signs: 06/16 21:57 BP 161 / 88; Pulse 102; Resp 20 S; Temp 99.3(O); Pulse Ox 100% on R/A; Weight 51.71 kg gr2 (R); Height 5 ft. 1 in. (154.94 cm) (R); Pain 10/10; 06/17 00:17 BP 127 / 86; Pulse 86; Resp 18; Temp 100.7(O); Pulse Ox 97% on R/A; Pain 0/10; kb5 02:15 BP 128 / 82; Pulse 74; Resp 16; Temp 98.8(O); Pulse Ox 97% on R/A; Pain 3/10; ld5 04:30 BP 127 / 85; Pulse 95; Resp 16; Temp 99.5; Pulse Ox 98% ; Pain 5/10; ko2 06/16 21:57 Body Mass Index 21.54 (51.71 kg, 154.94 cm) gr2 Vitals: 06/16 21:57 Log In Time: June 16, 2016 at 21:57. gr2 ED Course: 21:56 Patient visited by Bhavik Underwood. gr2 21:56 Other - Complete Info On Cds is Private Physician. gr2 21:56 Patient moved to Waiting gr2 21:58 Patient visited by Bhavik Underwood. gr2 21:58 Patient moved to Pre RCE gr2 22:01 Triage Initiated mcp 22:03 Patient visited by Ruby Burkett, BENEDICTO. mcp 22:03 Patient moved to Triage 2 mcp 22:24 Dewey Cottrell PA-C is PHCP. ar2 22:24 Ankush Garrido DO is Attending Physician. ar2 22:24 Patient visited by Dewey Cottrell PA-C. ar2 22:31 Patient moved to I1 / M1 ttb 22:32 Patient moved to I4 / M4 kb5 22:41 UA Sent. cln 22:44 UCG- In Lab Sent. ld5 23:07 Patient visited by Darryl Birmingham PCA. kb5 23:21 The patient / caregiver is instructed regarding the plan of care and ED course. ld5 Accompanied by Friend, Patient has correct armband on for positive identification. Placed in gown. Bed in low position. Call light in reach. 23:21 Inserted saline lock: 20 gauge in right forearm by Carlo Burkett RN. ld5 23:22 Patient visited by Gretchen Augustin,BENEDICTO. ld5 23:51 [facility] Payment Agreement was scanned into CallVU and attached to record. zo 18 00:10 Dewey Bright DO is Hospitalizing Provider. ar2 00:35 LIVER PROFILE Sent. ld5 00:53 Patient visited by Gretchen Augustin,BENEDICTO. ld5 01:38 Patient visited by Gretchen Augustin,BENEDICTO. ld5 02:16 Patient visited by Gretchen Augustin,BENEDICTO. ld5 02:22 Birgit Lewis,BENEDICTO is Primary Nurse. kb5 02:22 Patient moved to 9 kb5 02:30 Patient visited by Gretchen Augustin,BENEDICTO. ld5 02:35 Patient moved to Admit Hold ml3 02:42 Written Provider Order was scanned into CallVU and attached to record. ml3 04:06 Written Provider Order was scanned into CallVU and attached to record. ml3 07:30 Patient moved to I8 / 16 js13 07:34 Patient moved to Admit Hold kpj 07:58 Primary Nurse role handed off by Birgit Lewis RN btw 13:38 No apparent distress. Resting quietly. Awaiting disposition. bcj 13:38 No procedures done that require assistance. bcj 13:41 Patient visited by Lukas Miller RN. [facility] 18:11 T-Sheet-- Draft Copy was scanned into CallVU and attached to record. klr Administered Medications: 06/16 23:20 Drug: NS 0.9% 1000 ml [sodium chloride 0.9 % intravenous solution] Route: IV; Rate: ld5 bolus; Site: right antecubital; 06/17 00:37 Follow up: IV Status: Completed infusion; IV Intake: 1000ml ld5 06/16 23:20 Drug: Ondansetron 4 mg [ondansetron HCl 2 mg/mL intravenous solution (2 mL)] Route: ld5 IVP; Site: right antecubital; 23:20 Drug: ketorolac 30 mg [ketorolac 30 mg/mL (1 mL) injection solution (1 mL)] Route: IVP; ld5 Site: right antecubital; 06/17 00:00 Follow up: Response: Pain is decreased ld5 00:18 Drug: Ciprofloxacin 400 mg [ciprofloxacin 400 mg/200 mL in 5 % dextrose intravenous ld5 piggyback] Route: IVPB; Rate: 200 mL/hr; Infused Over: 60 mins; Site: right forearm; 01:36 Follow up: IV Status: Completed infusion; IV Intake: 200ml ld5 00:37 Drug: NS 0.9% (Sepsis- hypotension or lactate >4mmol/L, 30ml/kg) 500 ml [sodium ld5 chloride 0.9 % intravenous solution] Route: IV; Rate: bolus; Site: right forearm; 00:47 Drug: Acetaminophen 650 mg [acetaminophen 325 mg tablet (2 tabs)] Route: PO; rw1 02:16 Follow up: Response: Temperature is decreased ld5 01:54 Drug: Potassium Chloride 40 mEq [potassium chloride ER 10 mEq tablet,extended release ld5 (4 tabs)] Route: PO; 02:05 Drug: NS 0.9% 1000 ml [sodium chloride 0.9 % intravenous solution] Route: IV; Rate: 90 ld5 mL/hr; Site: right forearm; Intake: 00:37 IV: 1000.00ml; Total: 1000.00ml. ld5 01:36 IV: 200.00ml; Total: 1200.00ml. ld5 Order Results: Lab Order: CBC with Diff; SPEC'M 06/16/16 23:40 Test: WHITE BLOOD COUNT; Value: 11.0; Range: 4.0-10.0; Abnormal: Above high normal; Units: K/mm3; Status: F Test: RED BLOOD COUNT; Value: 3.00; Range: 4.00-5.40; Abnormal: Below low normal; Units: M/mm3; Status: F Test: HEMOGLOBIN; Value: 9.9; Range: 12.0-16.0; Abnormal: Below low normal; Units: g/dl; Status: F Test: HEMATOCRIT; Value: 29.5; Range: 36.0-47.0; Abnormal: Below low normal; Units: %; Status: F Test: MEAN CORPUSCULAR VOLUME; Value: 98.2; Range: 80.0-96.0; Abnormal: Above high normal; Units: fl; Status: F Test: MEAN CORPUSCULAR HEMOGLOBIN; Value: 32.9; Range: 27.0-33.0; Units: pg; Status: F Test: MEAN CORPUSCULAR HGB CONC; Value: 33.5; Range: 32.0-36.5; Units: g/dl; Status: F Test: RED CELL DISTRIBUTION WIDTH; Value: 13.8; Range: 11.5-14.5; Units: %; Status: F Test: PLATELET COUNT, AUTOMATED; Value: 347; Range: 150-450; Units: k/mm3; Status: F Test: NEUTROPHILS %; Value: 69.1; Range: 36.0-66.0; Abnormal: Above high normal; Units: %; Status: F Test: LYMPH %; Value: 12.1; Range: 24.0-44.0; Abnormal: Below low normal; Units: %; Status: F Test: MONO %; Value: 12.4; Range: 0.0-5.0; Abnormal: Above high normal; Units: %; Status: F Test: EOS %; Value: 1.0; Range: 0.0-3.0; Units: %; Status: F Test: BASO %; Value: 0.3; Range: 0.0-1.0; Units: %; Status: F Test: LARGE UNSTAINED CELL %; Value: 5.1; Range: 0.0-4.0; Abnormal: Above high normal; Units: %; Status: F Test: NEUTROPHILS #; Value: 7.6; Range: 1.8-7.7; Units: K/mm3; Status: F Test: LYMPH #; Value: 1.9; Range: 1.5-4.5; Units: K/mm3; Status: F Test: MONO #; Value: 1.4; Range: 0.0-0.8; Abnormal: Above high normal; Units: K/mm3; Status: F Test: EOS #; Value: 0.1; Range: 0.0-0.50; Units: K/mm3; Status: F Test: BASO #; Value: 0.0; Range: 0.0-0.2; Units: K/mm3; Status: F Test: LARGE UNSTAINED CELL #; Value: 0.6; Range: 0.0-0.4; Abnormal: Above high normal; Units: K/mm3; Status: F Lab Order: MED Profile; [facility] 06/16/16 23:40 Test: GLUCOSE, FASTING; Value: 123; Range: 70-105; Abnormal: Above high normal; Units: MG/DL; Status: F Test: BLOOD UREA NITROGEN; Value: 3; Range: 7-18; Abnormal: Below low normal; Units: MG/DL; Status: F Test: CREATININE FOR GFR; Value: 0.62; Range: 0.55-1.02; Units: MG/DL; Status: F Test: GLOMERULAR FILTRATION RATE; Value: > 60.0; Range: >58; Status: F Test: SODIUM LEVEL; Value: 141; Range: 136-145; Units: MEQ/L; Status: F Test: POTASSIUM SERUM; Value: 2.9; Range: 3.5-5.1; Abnormal: Critical Low; Units: MEQ/L; Status: F Test: CHLORIDE LEVEL; Value: 110; Range: 98-107; Abnormal: Above high normal; Units: MEQ/L; Status: F Test: CARBON DIOXIDE LEVEL; Value: 22; Range: 21-32; Units: MEQ/L; Status: F Test: ANION GAP; Value: 9; Range: 8-16; Units: MEQ/L; Status: F Test: CALCIUM LEVEL; Value: 8.0; Range: 8.5-10.1; Abnormal: Below low normal; Units: MG/DL; Status: F Test Note: ; Units are mL/min/1.73 m2 Chronic Kidney Disease Staging per NKF: Stage I & II GFR >=60 Normal to Mildly Decreased Stage III GFR 30-59 Moderately Decreased Stage IV GFR 15-29 Severely Decreased Stage V GFR <15 Very Little GFR Left ESRD GFR <15 on HUMAN RESOURCES OPERATIONS SPECIALIST Lab Order: UA; SPEC'M 06/16/16 22:22 Test: APPEARANCE, URINE; Value: CLEAR; Range: CLEAR; Status: F Test: COLOR, URINE; Value: ALEAH; Range: YELLOW; Status: F Test: PH,URINE; Value: 6.0; Range: 5.0-9.0; Units: UNITS; Status: F Test: SPECIFIC GRAVITY URINE AUTO; Value: 1.013; Range: 1.002-1.035; Status: F Test: PROTEIN, URINE AUTO; Value: 1+; Range: NEGATIVE; Abnormal: Above high normal; Units: mg/dL; Status: F Test: GLUCOSE, URINE (UA) AUTO; Value: NEGATIVE; Range: NEGATIVE; Units: mg/dL; Status: F Test: KETONE, URINE AUTO; Value: 1+; Range: NEGATIVE; Abnormal: Above high normal; Units: mg/dL; Status: F Test: UROBILINOGEN, URINE AUTO; Value: 4.0; Range: 0.0-2.0; Abnormal: Above high normal; Units: mg/dL; Status: F Test: BILIRUBIN, URINE AUTO; Value: NEGATIVE; Range: NEGATIVE; Status: F Test: NITRITE, URINE AUTO; Value: POSITIVE; Range: NEGATIVE; Status: F Test: LEUKOCYTE ESTERASE, URINE AUTO; Value: NEGATIVE; Range: NEGATIVE; Status: F Test: BLOOD, URINE BLOOD; Value: 1+; Range: NEGATIVE; Abnormal: Above high normal; Status: F Test: WBC, URINE AUTO; Value: 5; Range: 0-3; Abnormal: Above high normal; Units: /HPF; Status: F Test: RBC, URINE AUTO; Value: 18; Range: 0-3; Abnormal: Above high normal; Units: /HPF; Status: F Test: BACTERIA, URINE AUTO; Value: NEGATIVE; Range: NEGATIVE; Status: F Test: SQUAMOUS EPITHELIAL CELL UR AU; Value: 1; Range: 0-6; Units: /HPF; Status: F Test: MUCUS, URINE; Value: SMALL; Range: NEGATIVE; Status: F Test: HYALINE CAST, URINE AUTO; Value: 0; Range: 0-1; Units: /LPF; Status: F Lab Order: UCG- In Lab; [facility] 06/16/16 22:22 Test: URINE PREG TEST; Value: NEGATIVE; Range: NEGATIVE; Status: F Lab Order: Lactic Acid (Kim tube on ice); 06/16/16 23:40 Test: LACTIC ACID SEPSIS PROTOCOL; Value: 1.0; Range: 0.4-2.0; Units: MMOL/L; Status: F Lab Order: LIVER PROFILE; [facility] 06/16/16 23:40 Test: AST/SGOT; Value: 26; Range: 15-37; Units: U/L; Status: F Test: ALT/SGPT; Value: 37; Range: 12-78; Units: U/L; Status: F Test: ALKALINE PHOSPHATASE; Value: 83; Range: 45-117; Units: U/L; Status: F Test: BILIRUBIN,TOTAL; Value: 1.3; Range: 0.2-1.0; Abnormal: Above high normal; Units: MG/DL; Status: F Test: BILIRUBIN,DIRECT; Value: 0.5; Range: 0.0-0.2; Abnormal: Above high normal; Units: MG/DL; Status: F Test: TOTAL PROTEIN; Value: 6.5; Range: 6.4-8.2; Units: GM/DL; Status: F Test: ALBUMIN; Value: 2.5; Range: 3.2-5.2; Abnormal: Below low normal; Units: GM/DL; Status: F Test: ALBUMIN/GLOBULIN RATIO; Value: 0.63; Range: 1.00-1.93; Abnormal: Below low normal; Status: F Lab Order: COMPLETE BLOOD COUNT; [facility] 06/17/16 06:09 Test: WHITE BLOOD COUNT; Value: 10.5; Range: 4.0-10.0; Abnormal: Above high normal; Units: K/mm3; Status: F Test: RED BLOOD COUNT; Value: 3.04; Range: 4.00-5.40; Abnormal: Below low normal; Units: M/mm3; Status: F Test: HEMOGLOBIN; Value: 10.1; Range: 12.0-16.0; Abnormal: Below low normal; Units: g/dl; Status: F Test: HEMATOCRIT; Value: 30.1; Range: 36.0-47.0; Abnormal: Below low normal; Units: %; Status: F Test: MEAN CORPUSCULAR VOLUME; Value: 98.9; Range: 80.0-96.0; Abnormal: Above high normal; Units: fl; Status: F Test: MEAN CORPUSCULAR HEMOGLOBIN; Value: 33.3; Range: 27.0-33.0; Abnormal: Above high normal; Units: pg; Status: F Test: MEAN CORPUSCULAR HGB CONC; Value: 33.7; Range: 32.0-36.5; Units: g/dl; Status: F Test: RED CELL DISTRIBUTION WIDTH; Value: 13.7; Range: 11.5-14.5; Units: %; Status: F Test: PLATELET COUNT, AUTOMATED; Value: 365; Range: 150-450; Units: k/mm3; Status: F Lab Order: BASIC METABOLIC PROFILE; [facility] 06/17/16 06:09 Test: GLUCOSE, FASTING; Value: 116; Range: 70-105; Abnormal: Above high normal; Units: MG/DL; Status: F Test: BLOOD UREA NITROGEN; Value: 2; Range: 7-18; Abnormal: Below low normal; Units: MG/DL; Status: F Test: CREATININE FOR GFR; Value: 0.68; Range: 0.55-1.02; Units: MG/DL; Status: F Test: GLOMERULAR FILTRATION RATE; Value: > 60.0; Range: >58; Status: F Test: SODIUM LEVEL; Value: 142; Range: 136-145; Units: MEQ/L; Status: F Test: POTASSIUM SERUM; Value: 3.7; Range: 3.5-5.1; Units: MEQ/L; Status: F Test: CHLORIDE LEVEL; Value: 110; Range: 98-107; Abnormal: Above high normal; Units: MEQ/L; Status: F Test: CARBON DIOXIDE LEVEL; Value: 23; Range: 21-32; Units: MEQ/L; Status: F Test: ANION GAP; Value: 9; Range: 8-16; Units: MEQ/L; Status: F Test: CALCIUM LEVEL; Value: 7.9; Range: 8.5-10.1; Abnormal: Below low normal; Units: MG/DL; Status: F Test Note: ; Units are mL/min/1.73 m2 Chronic Kidney Disease Staging per NKF: Stage I & II GFR >=60 Normal to Mildly Decreased Stage III GFR 30-59 Moderately Decreased Stage IV GFR 15-29 Severely Decreased Stage V GFR <15 Very Little GFR Left ESRD GFR <15 on HUMAN RESOURCES OPERATIONS SPECIALIST Lab Order: MAGNESIUM LEVEL; SPEC' 06/16/16 23:40 Test: MAGNESIUM LEVEL; Value: 1.8; Range: 1.8-2.4; Units: MG/DL; Status: F Lab Order: BASIC METABOLIC PROFILE; [facility] 06/17/16 02:54 Test: GLUCOSE, FASTING; Value: 164; Range: 70-105; Abnormal: Above high normal; Units: MG/DL; Status: F Test: BLOOD UREA NITROGEN; Value: 3; Range: 7-18; Abnormal: Below low normal; Units: MG/DL; Status: F Test: CREATININE FOR GFR; Value: 0.68; Range: 0.55-1.02; Units: MG/DL; Status: F Test: GLOMERULAR FILTRATION RATE; Value: > 60.0; Range: >58; Status: F Test: SODIUM LEVEL; Value: 144; Range: 136-145; Units: MEQ/L; Status: F Test: POTASSIUM SERUM; Value: 3.1; Range: 3.5-5.1; Abnormal: Below low normal; Units: MEQ/L; Status: F Test: CHLORIDE LEVEL; Value: 111; Range: 98-107; Abnormal: Above high normal; Units: MEQ/L; Status: F Test: CARBON DIOXIDE LEVEL; Value: 23; Range: 21-32; Units: MEQ/L; Status: F Test: ANION GAP; Value: 10; Range: 8-16; Units: MEQ/L; Status: F Test: CALCIUM LEVEL; Value: 7.6; Range: 8.5-10.1; Abnormal: Below low normal; Units: MG/DL; Status: F Test Note: ; Units are mL/min/1.73 m2 Chronic Kidney Disease Staging per NKF: Stage I & II GFR >=60 Normal to Mildly Decreased Stage III GFR 30-59 Moderately Decreased Stage IV GFR 15-29 Severely Decreased Stage V GFR <15 Very Little GFR Left ESRD GFR <15 on HUMAN RESOURCES OPERATIONS SPECIALIST Lab Order: MAGNESIUM LEVEL; SPEC'M 06/17/16 02:54 Test: MAGNESIUM LEVEL; Value: 1.9; Range: 1.8-2.4; Units: MG/DL; Status: F Outcome: 00:12 Decision to Hospitalize by Provider. ar2 13:38 Discharge Assessment: patient administered narcotics - no. The following High Risk [facility] Discharge criteria are identified: None. Discharged to Admitted to Med/Surg accompanied by tech, via stretcher. Condition: stable. No special radiology studies were completed. Property :Personal belongings accompany Pt. 13:41 Patient left the ED. [facility] Signatures: Tigist Foster, RN RN Lukas Duran RN RN Ruby Bernabe RN BENEDICTO [facility] ValerieKatelyn, Rotary Dump Operator Unit ml3 Chu Fontana,COMMUNICATION CENTER COORDINATOR COMMUNICATION CENTER COORDINATOR rw1 Maritza Hay Kristopher, AUDIT LEAD AUDIT LEAD kb5 Dewey Cottrell, PA-C PA-C ar2 Edilberto Carter PA PA btw Gretchen AugustinRN RN ld5 Cammie Alfaro,RN RN js13 Carlee Zepeda, RN RN ttb Bhavik Underwood gr2 Birgit LewisRN RN vanessa2 Ambar Echavarria, AUDIT LEAD AUDIT LEAD rachaeln Ayla Clement Corrections: (The following items were deleted from the chart) 02:05 06/16 23:21 Inserted saline lock: 20 gauge in right antecubital area by Carlo Burkett RN ld5 ld5 Chart Complete MTDD
--- NOTE | 2016-06-19 14:42 | EDDOCDS ---
Physician Documentation [facility] Name: Mary Martinez Age: 41 yrs Sex: Female : 1975 Arrival Date: 06/16/2016 Time: 21:55 Bed Admit Hold Private MD: Other - Complete Info On Cds Disposition: 06/17/16 00:12 Hospitalization ordered by Dewey Bright for Inpatient Admission. Preliminary diagnosis are Bacteremia - e.coli (esbl), Urinary tract infection, site not specified, Sepsis due to Escherichia coli [E. coli]. - Bed requested for M PED. - Status is Inpatient Admission. bcj - Condition is Stable. - Problem is new. - Symptoms are unchanged. Historical: - Allergies: no known allergies; - Home Meds: 1. Azo-Standard Oral 2. antibiotic - PMHx: none; - PSHx: none; - Social history: Smoking status: Patient states was never smoker of tobacco. No barriers to communication noted, The patient speaks fluent Hungarian. - Family history: Not pertinent. - : The pt / caregiver states he / she is not on anticoagulants. Home medication list is obtained from the patient. - Exposure Risk Screening:: None identified. BASKETBALL SCOUT: 06/16 22:02 LMP N/A - control method mcp Vital Signs: 21:57 BP 161 / 88; Pulse 102; Resp 20 S; Temp 99.3(O); Pulse Ox 100% on R/A; Weight 51.71 kg gr2 / 114 lbs (R); Height 5 ft. 1 in. (154.94 cm) (R); Pain 10/10; 06/17 00:17 BP 127 / 86; Pulse 86; Resp 18; Temp 100.7(O); Pulse Ox 97% on R/A; Pain 0/10; kb5 02:15 BP 128 / 82; Pulse 74; Resp 16; Temp 98.8(O); Pulse Ox 97% on R/A; Pain 3/10; ld5 04:30 BP 127 / 85; Pulse 95; Resp 16; Temp 99.5; Pulse Ox 98% ; Pain 5/10; ko2 06/16 21:57 Body Mass Index 21.54 (51.71 kg, 154.94 cm) gr2 MDM: 06/16 22:37 IV Saline Lock ordered. ar2 22:37 NS 0.9% 1000 ml IV at bolus once ordered. ar2 22:37 -Blood Culture (Adults Only), peripheral from different site, or from device/port/PICC ar2 etc. if present ordered. 22:37 Ondansetron 4 mg IVP once ordered. ar2 22:37 Misc Sugar Sampler Order ordered. ar2 22:37 ketorolac 30 mg IVP once; administer if NEG UCG ordered. ar2 22:38 CBC with Diff Ordered. EDMS 22:38 MED Profile Ordered. EDMS 22:38 UA Ordered. EDMS 22:38 -Blood Culture Ordered. EDMS 22:44 UCG- In Lab Ordered. EDMS 22:54 Misc Sugar Sampler Order complete. kb5 23:06 -Blood Culture (Adults Only), peripheral from different site, or from device/port/PICC kb5 etc. if present complete. 23:08 BLOOD CULTURES Ordered. EDMS 23:22 UCG- In Lab Reviewed. ar2 23:34 Lactic Acid (Kim tube on ice) Ordered. EDMS 23:50 Financial registration complete. zo 23:51 [facility] Payment Agreement was scanned into [employer] and attached to record. zo 06/17 00:00 Ciprofloxacin 400 mg IVPB at 200 mL/hr once over 60 mins ordered. ar2 00:00 NS 0.9% (Sepsis- hypotension or lactate >4mmol/L, 30ml/kg) 500 ml IV at bolus once; ar2 Give in 500mL aliquots, assess for rales after each, inform provider ordered. 00:01 CBC with Diff Reviewed. ar2 00:01 UA Reviewed. ar2 00:01 BED REQUEST+ADM ordered. EDMS 00:27 LIVER PROFILE Ordered. EDMS 00:30 Acetaminophen Tablet 650 mg PO once ordered. ar2 00:30 Lactic Acid (Kim tube on ice) Reviewed. ar2 00:43 Admission / Observation Status ordered. EDMS 00:57 MED Profile Reviewed. ar2 00:57 LIVER PROFILE Reviewed. ar2 00:58 Potassium Chloride Extended Release Tablet 40 mEq PO once ordered. ar2 01:05 REGULAR DIET ordered. EDMS 01:05 COMPLETE BLOOD COUNT Ordered. EDMS 01:05 BASIC METABOLIC PROFILE Ordered. EDMS 01:08 MAGNESIUM LEVEL Ordered. EDMS 01:48 MED Profile Reviewed. ar2 01:48 LIVER PROFILE Reviewed. ar2 01:48 MAGNESIUM LEVEL Reviewed. ar2 01:55 NS 0.9% 1000 ml IV at 90 mL/hr continuous ordered. ld5 02:42 Written Provider Order was scanned into [employer] and attached to record. ml3 02:43 BASIC METABOLIC PROFILE Ordered. EDMS 04:06 Written Provider Order was scanned into [employer] and attached to record. ml3 07:15 URINE CULTURE Ordered. EDMS 14:44 RENAL US Ordered. EDMS 18:11 T-Sheet-- Draft Copy was scanned into [employer] and attached to record. klr Administered Medications: 06/16 23:20 Drug: NS 0.9% 1000 ml [sodium chloride 0.9 % intravenous solution] Route: IV; Rate: ld5 bolus; Site: right antecubital; 06/17 00:37 Follow up: IV Status: Completed infusion; IV Intake: 1000ml ld5 06/16 23:20 Drug: Ondansetron 4 mg [ondansetron HCl 2 mg/mL intravenous solution (2 mL)] Route: ld5 IVP; Site: right antecubital; 23:20 Drug: ketorolac 30 mg [ketorolac 30 mg/mL (1 mL) injection solution (1 mL)] Route: IVP; ld5 Site: right antecubital; 06/17 00:00 Follow up: Response: Pain is decreased ld5 00:18 Drug: Ciprofloxacin 400 mg [ciprofloxacin 400 mg/200 mL in 5 % dextrose intravenous ld5 piggyback] Route: IVPB; Rate: 200 mL/hr; Infused Over: 60 mins; Site: right forearm; 01:36 Follow up: IV Status: Completed infusion; IV Intake: 200ml ld5 00:37 Drug: NS 0.9% (Sepsis- hypotension or lactate >4mmol/L, 30ml/kg) 500 ml [sodium ld5 chloride 0.9 % intravenous solution] Route: IV; Rate: bolus; Site: right forearm; 00:47 Drug: Acetaminophen 650 mg [acetaminophen 325 mg tablet (2 tabs)] Route: PO; rw1 02:16 Follow up: Response: Temperature is decreased ld5 01:54 Drug: Potassium Chloride 40 mEq [potassium chloride ER 10 mEq tablet,extended release ld5 (4 tabs)] Route: PO; 02:05 Drug: NS 0.9% 1000 ml [sodium chloride 0.9 % intravenous solution] Route: IV; Rate: 90 ld5 mL/hr; Site: right forearm; Signatures: Dispatcher [employer] EDLukas Tavares, RN RN Ruby Bernabe RN RN [facility] ValerieKatelyn, Electric [employer] ml3 SatnamMaritza Kristopher, FILM TECHNICIAN FILM TECHNICIAN kb5 Dewey Cottrell PA-C PA-C ar2 Mira Perez, FILM TECHNICIAN FILM TECHNICIAN ar3 Gretchen Augustin RN RN ld5 Ayla Clement klChu Lugo LPN rw1 The chart was reviewed and I authenticate all verbal orders and agree with the evaluation and treatment provided.Corrections: (The following items were deleted from the chart) 06/16 22:43 22:37 UCG by Nursing ordered. ar2 [facility] 06/17 00:27 00:24 LIVER PROFILE+LAB ordered. EDMS EDMS 01:08 01:05 MAGNESIUM LEVEL ordered. EDMS EDMS 08:15 08:10 MAGNESIUM LEVEL ordered. EDMS EDMS Attachments: 06/16 23:51 [facility] Payment Agreement 06/17 02:42 Written Provider Order ml3 04:06 Written Provider Order ml3 18:11 T-Sheet-- Draft Copy klr Chart Complete MTDD
--- NOTE | 2016-06-19 14:42 | EDDOCDS ---
Physician Documentation [facility] Name: Mary Martinez Age: 41 yrs Sex: Female : 1975 Arrival Date: 06/16/2016 Time: 21:55 Bed Admit Hold Private MD: Other - Complete Info On Cds Disposition: 06/17/16 00:12 Hospitalization ordered by Dewey Bright for Inpatient Admission. Preliminary diagnosis are Bacteremia - e.coli (esbl), Urinary tract infection, site not specified, Sepsis due to Escherichia coli [E. coli]. - Bed requested for M PED. - Status is Inpatient Admission. bcj - Condition is Stable. - Problem is new. - Symptoms are unchanged. Historical: - Allergies: no known allergies; - Home Meds: 1. Azo-Standard Oral 2. antibiotic - PMHx: none; - PSHx: none; - Social history: Smoking status: Patient states was never smoker of tobacco. No barriers to communication noted, The patient speaks fluent Ghanaian. - Family history: Not pertinent. - : The pt / caregiver states he / she is not on anticoagulants. Home medication list is obtained from the patient. - Exposure Risk Screening:: None identified. TECHNICAL AID: 06/16 22:02 LMP N/A - control method mcp Vital Signs: 21:57 BP 161 / 88; Pulse 102; Resp 20 S; Temp 99.3(O); Pulse Ox 100% on R/A; Weight 51.71 kg gr2 / 114 lbs (R); Height 5 ft. 1 in. (154.94 cm) (R); Pain 10/10; 06/17 00:17 BP 127 / 86; Pulse 86; Resp 18; Temp 100.7(O); Pulse Ox 97% on R/A; Pain 0/10; kb5 02:15 BP 128 / 82; Pulse 74; Resp 16; Temp 98.8(O); Pulse Ox 97% on R/A; Pain 3/10; ld5 04:30 BP 127 / 85; Pulse 95; Resp 16; Temp 99.5; Pulse Ox 98% ; Pain 5/10; ko2 06/16 21:57 Body Mass Index 21.54 (51.71 kg, 154.94 cm) gr2 MDM: 06/16 22:37 IV Saline Lock ordered. ar2 22:37 NS 0.9% 1000 ml IV at bolus once ordered. ar2 22:37 -Blood Culture (Adults Only), peripheral from different site, or from device/port/PICC ar2 etc. if present ordered. 22:37 Ondansetron 4 mg IVP once ordered. ar2 22:37 Misc Income Tax Expert Order ordered. ar2 22:37 ketorolac 30 mg IVP once; administer if NEG UCG ordered. ar2 22:38 CBC with Diff Ordered. EDMS 22:38 MED Profile Ordered. EDMS 22:38 UA Ordered. EDMS 22:38 -Blood Culture Ordered. EDMS 22:44 UCG- In Lab Ordered. EDMS 22:54 Misc Income Tax Expert Order complete. kb5 23:06 -Blood Culture (Adults Only), peripheral from different site, or from device/port/PICC kb5 etc. if present complete. 23:08 BLOOD CULTURES Ordered. EDMS 23:22 UCG- In Lab Reviewed. ar2 23:34 Lactic Acid (Kim tube on ice) Ordered. EDMS 23:50 Financial registration complete. zo 23:51 [facility] Payment Agreement was scanned into [employer] and attached to record. zo 06/17 00:00 Ciprofloxacin 400 mg IVPB at 200 mL/hr once over 60 mins ordered. ar2 00:00 NS 0.9% (Sepsis- hypotension or lactate >4mmol/L, 30ml/kg) 500 ml IV at bolus once; ar2 Give in 500mL aliquots, assess for rales after each, inform provider ordered. 00:01 CBC with Diff Reviewed. ar2 00:01 UA Reviewed. ar2 00:01 BED REQUEST+ADM ordered. EDMS 00:27 LIVER PROFILE Ordered. EDMS 00:30 Acetaminophen Tablet 650 mg PO once ordered. ar2 00:30 Lactic Acid (Kim tube on ice) Reviewed. ar2 00:43 Admission / Observation Status ordered. EDMS 00:57 MED Profile Reviewed. ar2 00:57 LIVER PROFILE Reviewed. ar2 00:58 Potassium Chloride Extended Release Tablet 40 mEq PO once ordered. ar2 01:05 REGULAR DIET ordered. EDMS 01:05 COMPLETE BLOOD COUNT Ordered. EDMS 01:05 BASIC METABOLIC PROFILE Ordered. EDMS 01:08 MAGNESIUM LEVEL Ordered. EDMS 01:48 MED Profile Reviewed. ar2 01:48 LIVER PROFILE Reviewed. ar2 01:48 MAGNESIUM LEVEL Reviewed. ar2 01:55 NS 0.9% 1000 ml IV at 90 mL/hr continuous ordered. ld5 02:42 Written Provider Order was scanned into [employer] and attached to record. ml3 02:43 BASIC METABOLIC PROFILE Ordered. EDMS 04:06 Written Provider Order was scanned into [employer] and attached to record. ml3 07:15 URINE CULTURE Ordered. EDMS 14:44 RENAL US Ordered. EDMS 18:11 T-Sheet-- Draft Copy was scanned into [employer] and attached to record. klr Administered Medications: 06/16 23:20 Drug: NS 0.9% 1000 ml [sodium chloride 0.9 % intravenous solution] Route: IV; Rate: ld5 bolus; Site: right antecubital; 06/17 00:37 Follow up: IV Status: Completed infusion; IV Intake: 1000ml ld5 06/16 23:20 Drug: Ondansetron 4 mg [ondansetron HCl 2 mg/mL intravenous solution (2 mL)] Route: ld5 IVP; Site: right antecubital; 23:20 Drug: ketorolac 30 mg [ketorolac 30 mg/mL (1 mL) injection solution (1 mL)] Route: IVP; ld5 Site: right antecubital; 06/17 00:00 Follow up: Response: Pain is decreased ld5 00:18 Drug: Ciprofloxacin 400 mg [ciprofloxacin 400 mg/200 mL in 5 % dextrose intravenous ld5 piggyback] Route: IVPB; Rate: 200 mL/hr; Infused Over: 60 mins; Site: right forearm; 01:36 Follow up: IV Status: Completed infusion; IV Intake: 200ml ld5 00:37 Drug: NS 0.9% (Sepsis- hypotension or lactate >4mmol/L, 30ml/kg) 500 ml [sodium ld5 chloride 0.9 % intravenous solution] Route: IV; Rate: bolus; Site: right forearm; 00:47 Drug: Acetaminophen 650 mg [acetaminophen 325 mg tablet (2 tabs)] Route: PO; rw1 02:16 Follow up: Response: Temperature is decreased ld5 01:54 Drug: Potassium Chloride 40 mEq [potassium chloride ER 10 mEq tablet,extended release ld5 (4 tabs)] Route: PO; 02:05 Drug: NS 0.9% 1000 ml [sodium chloride 0.9 % intravenous solution] Route: IV; Rate: 90 ld5 mL/hr; Site: right forearm; Signatures: Dispatcher [employer] EDLukas Tavares, RN RN Ruby Bernabe RN RN [facility] ValerieKatelyn, Teacher [employer] ml3 SatnamMaritza Kristopher, APPRENTICE ELECTRICIAN APPRENTICE ELECTRICIAN kb5 Dewey Cottrell PA-C PA-C ar2 Mira Perez, APPRENTICE ELECTRICIAN APPRENTICE ELECTRICIAN ar3 Gretchen Augustin RN RN ld5 Ayla Clement klChu Lugo LPN rw1 The chart was reviewed and I authenticate all verbal orders and agree with the evaluation and treatment provided.Corrections: (The following items were deleted from the chart) 06/16 22:43 22:37 UCG by Nursing ordered. ar2 [facility] 06/17 00:27 00:24 LIVER PROFILE+LAB ordered. EDMS EDMS 01:08 01:05 MAGNESIUM LEVEL ordered. EDMS EDMS 08:15 08:10 MAGNESIUM LEVEL ordered. EDMS EDMS Attachments: 06/16 23:51 [facility] [place] 06/17 02:42 Written Provider Order ml3 04:06 Written Provider Order ml3 18:11 T-Sheet-- Draft Copy klr Chart Complete MTDD
--- NOTE | 2016-06-20 06:01 | DSES ---
DATE OF ADMISSION: 06/17/2016 DATE OF DISCHARGE: 06/18/2016 PRIMARY CARE PROVIDER: Dr. Sandrine Gross in [place]. FINAL DIAGNOSES: 1. Nausea and vomiting. 2. Sepsis with fever and tachycardia due to pyelonephritis secondary to ESBL Escherichia (E) coli. 3. Hypokalemia secondary to nausea and vomiting. 4. Insomnia. HISTORY OF PRESENT ILLNESS: This is a 41-year-old female patient with no significant underlying medical history visiting [place] from [place] with recent diagnosis of urinary tract infection (UTI) presented with left-sided flank pain, nausea and vomiting, fevers and was found to be tachycardia, recently treated with Ceftin for UTI. Urine culture actually grew ESBL E coli. Currently visiting family in [facility] with worsening symptoms. Denies any chest pain, pressure or discomfort. Denies any shortness of breath. Reported fevers and chills. Denies any urinary complaints. HOSPITAL COURSE: Patient started on IV fluids. Tylenol given. Pain medication given. Antibiotic Levaquin started. Culture and sensitivity was acquired. Zofran as needed given. Patient's tachycardia improved. Fever also improved. With improvement of leukocytosis, patient reported feeling much better and is anxious to leave, given her flight is later today, back to [place]. Subsequently, antibiotic was sent to her pharmacy. Patient tolerating oral, in no significant distress, is ready to be discharged for further care as outpatient. VITAL SIGNS: Temperature 97.8, pulse 79, respirations 16, blood pressure 155/85, pulse oximetry 99% on room air. LABORATORY DATA: WBC 10.2, hemoglobin and hematocrit 8.9/29.2, platelets 404. Chemistry: Sodium 142, potassium 3.5, chloride 108, bicarbonate 25, BUN 2, creatinine 0.59. DISCHARGE MEDICATION: - Levaquin 750 mg by mouth daily - acetaminophen 100 mg by mouth as needed - phenazopyridine 200 mg by mouth twice a day as needed - Ambien 10 mg by mouth nightly as needed DISCHARGE INSTRUCTION: Patient is instructed to followup with primary care provider in the next week, 7-10 days. See provider earlier or return to the hospital if symptoms worsen.
== END 2016-06-18 09:42 | disposition home or self-care (01) ==
LOC: M ED 21:55 → M ED INP 06-17 00:42 → M PED 06-17 14:48
PROVIDERS: ADMIT Hospitalist; ATTEND Hospitalist
DX: R11.2 Nausea with vomiting, unspecified (principal); N39.0 Urinary tract infection, site not specified; N12 Tubulo-interstitial nephritis, not specified as acute or chronic; B96.20 Unspecified Escherichia coli [E. coli] as the cause of diseases classified elsewhere; E87.6 Hypokalemia; G47.00 Insomnia, unspecified; Z79.899 Other long term (current) drug therapy
CPT/HCPCS: 36415; 76775; 80048; 80076; 81001; 83605; 83735; 84703; 85025; 85027; 87040; 87086; 96375; 99285; J0744; J1650; J1885; J1956; J2405